=== PATIENT | female | born 1960 | race African-American/Black ===

== ENCOUNTER → 2024-07-13 08:09 | Outpatient (RCR) | payer OTHER, SELFPAY | END | disposition home or self-care (01) | LOC: HO.WCC 03-14 08:21 | PROVIDERS: PCP Physician Assistant Medical; Referring Provider Nurse Practitioner Family; Visit Provider Physician Assistant | DX: T25.232D Burn of second degree of left toe(s) (nail), subsequent encounter (principal); E11.69 Type 2 diabetes mellitus with other specified complication; T31.0 Burns involving less than 10% of body surface; I10 Essential (primary) hypertension; X12.XXXD Contact with other hot fluids, subsequent encounter; Z87.891 Personal history of nicotine dependence | CPT/HCPCS: 16020; 99213 ==